=== PATIENT | female | born 1950 | race Caucasian/White ===

== ENCOUNTER 2020-04-01 11:39 | Observation (INO) | payer OTHER ==
[~2020-04-01] VITALS: Ht 177.8 cm; Wt 96.7 kg
[2020-04-01] MEDS ORDERED: VITAMIN D-32000 UNIT PO (12:03)
[2020-04-01 12:28] LABS: BASOPHILS ABSOLUTE AUTO 0.03 K/mm3 (0.00-0.23); BASOPHILS PERCENT AUTO 1 % (0-2); EOSINOPHILS ABSOLUTE AUTO 0.17 K/mm3 (0.00-0.68); EOSINOPHILS PERCENT AUTO 3 % (0-6); Hematocrit 42.7 % (33.0-51.0); Hemoglobin 14.4 g/dL (11.5-16.0); IMMATURE GRAN ABSOLUTE AUTO 0.01 K/mm3 (0.00-0.10); IMMATURE GRAN PERCENT AUTO 0 % (0-1); LYMPHOCYTES ABSOLUTE AUTO 2.13 K/mm3 (0.84-5.20); LYMPHOCYTES PERCENT AUTO 38 % (21-46); MONOCYTES PERCENT AUTO 11 % (4-13); Mean Corpuscular HGB 28.2 pg (26.0-34.0); Mean Corpuscular HGB Conc 33.7 g/dL (31.5-36.5); Mean Corpuscular Volume 84 fL (80-100); Mean Platelet Volume 10.2 fL (9.1-12.4); NEUTROPHILS ABSOLUTE AUTO 2.72 K/mm3 (1.96-9.15); NEUTROPHILS PERCENT AUTO 48 % (41-73); Platelet Count 238 K/mm3 (150-400); RDW Coefficient Variation 12.6 % (11.7-14.2); RDW Standard Deviation 38.2 fL (35.1-46.3); Red Blood Cell Count 5.11 M/mm3 (3.80-5.20); White Blood Cell Count 5.66 K/mm3 (4.00-11.30)
[2020-04-01 12:43] LABS: International Normalized Ratio 0.99; Prothrombin Time Results 10.6 Sec (9.7-11.5)
[2020-04-01 12:44] LABS: Albumin, Blood 3.9 g/dL (3.4-5.0); Albumin/Globulin Ratio 0.9 (0.8-1.8); Bilirubin, Total 0.7 mg/dL (0.1-1.0); Bun/Creatinine Ratio 24.5 (12.0-20.0); Calcium, Blood 8.7 mg/dL (8.5-10.1); Creatinine, Blood 1.1 mg/dL (0.40-1.00); Globulin, Blood 4.5 g/dL (2.2-4.0); Potassium, Blood 4.1 mmol/L (3.5-5.5); Total Protein, Blood 8.4 g/dL (6.4-8.2)
[2020-04-01] MEDS ORDERED: Lisinopril-Hct1 EAC4 PO (14:39)
[2020-04-01] MEDS ORDERED: SULINDAC200 MG PO (14:40)
[2020-04-01] MEDS ORDERED: FISH OIL 1,2001 EAC1 PO (14:41)
[2020-04-01] MEDS ORDERED: Aspir 8181 MG PO (14:41)
[2020-04-01] MEDS ORDERED: Hair, Skin & N1 EACH PO (14:41)
[2020-04-01] MEDS ORDERED: CLIN300 PO (14:42)
[2020-04-01] MEDS ORDERED: CALCIUM 600 +1 EA11 PO (14:43)
[2020-04-01] MEDS ORDERED: OMEP20ER PO (14:43)
[2020-04-01] MEDS ORDERED: ATOR20 PO (14:44)
--- NOTE | 2020-04-01 18:19 | NUR ---
SHIFT SUMMARY Received report from ED-RN Elly. Patient arrived to unit at 1733 via stretcher. Independent in room, bed in lowest position, call light in reach. Oriented to funtionality of call system. Dr. Arevalo at bedside at this time. Patient c/o L side slight numbness affecting arm, face, and neck. Denies pain. Will continue to monitor.
[2020-04-02 04:25] LABS: BASOPHILS ABSOLUTE AUTO 0.03 K/mm3 (0.00-0.23); BASOPHILS PERCENT AUTO 1 % (0-2); EOSINOPHILS ABSOLUTE AUTO 0.17 K/mm3 (0.00-0.68); EOSINOPHILS PERCENT AUTO 3 % (0-6); Hematocrit 41.2 % (33.0-51.0); Hemoglobin 13.7 g/dL (11.5-16.0); IMMATURE GRAN ABSOLUTE AUTO 0.01 K/mm3 (0.00-0.10); IMMATURE GRAN PERCENT AUTO 0 % (0-1); LYMPHOCYTES ABSOLUTE AUTO 1.98 K/mm3 (0.84-5.20); LYMPHOCYTES PERCENT AUTO 34 % (21-46); MONOCYTES ABSOLUTE AUTO 0.78 K/mm3 (0.16-1.47); MONOCYTES PERCENT AUTO 13 % (4-13); Mean Corpuscular HGB Conc 33.3 g/dL (31.5-36.5); Mean Corpuscular Volume 84 fL (80-100); Mean Platelet Volume 10.3 fL (9.1-12.4); NEUTROPHILS ABSOLUTE AUTO 2.85 K/mm3 (1.96-9.15); NEUTROPHILS PERCENT AUTO 49 % (41-73); Platelet Count 232 K/mm3 (150-400); RDW Coefficient Variation 12.8 % (11.7-14.2); RDW Standard Deviation 39.4 fL (35.1-46.3); Red Blood Cell Count 4.89 M/mm3 (3.80-5.20); White Blood Cell Count 5.82 K/mm3 (4.00-11.30)
[2020-04-02 04:44] LABS: Anion Gap 5 mmol/L (6-16); Blood Urea Nitrogen 25 mg/dL (8-24); Bun/Creatinine Ratio 25.7 (12.0-20.0); CO2, Blood 28 mmol/L (21-32); Calcium, Blood 8.6 mg/dL (8.5-10.1); Chloride, Blood 105 mmol/L (98-108); Creatinine, Blood 0.97 mg/dL (0.40-1.00); Glomerular Filtration Rate >60 (60-); Glucose, Blood 103 mg/dL (70-99); Potassium, Blood 3.9 mmol/L (3.5-5.5); Sodium, Blood 138 mmol/L (136-145)
--- NOTE | 2020-04-02 07:34 | NUR ---
SHIFT SUMMARY PATIENT ALERT AND ORIENTED. INDEPENDENT IN THE ROOM AND HAD MINIMAL NEEDS. IV PATENT AND INFUSING WITH NORMAL SALINE AT 75 ML/HR. BED IN LOWEST POSITION WITH WHEELS LOCKED. CALL LIGHT WITHIN REACH. REPORT GIVEN TO ONCOMING RN.
[2020-04-02] MEDS ORDERED: ACET325 PO (10:43)
--- NOTE | 2020-04-02 13:32 | NUR ---
PT DISCHARGED 1103 GIVEN DC INSTRUCTIONS. PT A/O X3, FULLY AMBULATORY WITH NO DEFICITS REMAINING EXCEPT SUPERFICIAL NUMBNESS OVER L FACE AND LEG. INDEPENDANT IN ROOM, DRESSED SELF. IV DC'D, W/C STAFF ESCORT TO EXIT. PT STATES SHE IS DRIVING HER OWN CAR AND FEELS COMFOATABLE AND SAFE TO DO SO.
== END 2020-04-02 11:03 | disposition home or self-care (01) ==
LOC: ER 11:39 → MEDS 11:40 → ER 17:20 → MEDS 17:20 → ENPENDDIS 04-02 10:15 → MEDS 04-02 11:03
PROVIDERS: Emergency Medicine; ADMIT Internal Medicine
DX: R20.2 Paresthesia of skin (principal); G50.1 Atypical facial pain; M35.00 Sjogren syndrome, unspecified; I12.9 Hypertensive chronic kidney disease with stage 1 through stage 4 chronic kidney disease, or unspecified chronic kidney disease; N18.3 Chronic kidney disease, stage 3 (moderate); E78.5 Hyperlipidemia, unspecified; M19.90 Unspecified osteoarthritis, unspecified site; Z88.6 Allergy status to analgesic agent; Z79.82 Long term (current) use of aspirin; Z79.899 Other long term (current) drug therapy
CPT/HCPCS: 36415; 70450; 70551; 72040; 80048; 80053; 82947; 85025; 85610; 85651; 93005; 93010; 93306; 93880; 96360; 96361; 99285-25; A9270-GY; G0378; J7030